=== PATIENT | female | born 1990 | race African-American/Black ===

== ENCOUNTER 2018-03-22 22:24 | Emergency (ER) | payer SELFPAY ==
[2018-03-23 00:07] LABS: Urine Blood NEGATIVE (NEG); Urine Glucose NEGATIVE (NEG); Urine Protein TRACE (NEG); Urine Specific Gravity >1.030 (1.005-1.030)
[2018-03-23 00:17] LABS: Urine Bacteria <20 /HPF (<20); Urine Culture Reflex Order NOT NEEDED; Urine RBC <5 /HPF (NONE SEEN)
--- NOTE | 2018-03-23 01:23 | ER ---
Nurse's Notes [facility] Name: Lamar Judge Age: 28 yrs Sex: Female : 1990 Arrival Date: 03/22/2018 Time: 22:26 Bed 20 Private MD: Diagnosis: Dysuria; related conditions, unspecified, first trimester Presentation: 03/22 22:46 Presenting complaint: Patient states: she is having frequency, urgency and burning with bb urination, also thinks she may have a yeast infection has been using Monistat for the itching but it is not getting better also her menstrual cycle is 2 days late and she is usually on time. Transition of care: patient was not received from another setting of care. Onset of symptoms was March 15, 2018. Risk Assessment: Do you want to hurt yourself or someone else? Patient reports no desire to harm self or others. Initial Sepsis Screen: Does the patient meet any 2 criteria? No. Patient's initial sepsis screen is negative. Does the patient have a suspected source of infection? No. Patient's initial sepsis screen is negative. Care prior to arrival: None. 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 - Social history:: Smoking status: Patient/guardian denies using tobacco, Patient uses alcohol, occasionally. Patient/guardian denies using street drugs. - Ebola Screening: : No symptoms or risks identified at this time. Screenin:53 Abuse screen: Denies threats or abuse. Nutritional screening: No deficits noted. ea Tuberculosis screening: No symptoms or risk factors identified. Fall Risk None identified. Assessment: 23:10 General: Appears in no apparent distress. Pain: Complains of pain in suprapubic area. ea Neuro: Level of Consciousness is awake, alert, obeys commands, Oriented to person, place, time, situation. Cardiovascular: Patient's skin is warm and dry. Respiratory: Airway is patent Respiratory effort is even, unlabored, Respiratory pattern is regular, symmetrical. GI: Abdomen is non-distended, Bowel sounds present X 4 quads. Abd is soft and non tender X 4 quads. : Reports burning with urination, discharge, from vagina that is white, urgency. Derm: Skin is pink, warm \T\ dry. 03/23 01:31 Reassessment: Patient and/or family updated on plan of care and expected duration. Pain ea level reassessed. Patient is alert, oriented x 3, equal unlabored respirations, skin warm/dry/pink. Discharge instruction given to patient, verbalized the understanding of instruction. Patient states feeling better. Vital Signs: 03/22 22:48 BP 148 / 78; Pulse 90; Resp 16 S; Temp 98.9(O); Pulse Ox 100% on R/A; Weight 81.65 kg bb (R); Height 5 ft. 6 in. (167.64 cm) (R); Pain 8/10; 03/23 00:00 BP 140 / 78; Pulse 88; Resp 18; Pulse Ox 98% ; ea 01:50 BP 138 / 62; Pulse 80; Resp 18; Pulse Ox 98% on R/A; rr5 03/22 22:48 Body Mass Index 29.05 (81.65 kg, 167.64 cm) bb ED Course: 03/22 22:26 Patient arrived in ED. am2 22:48 Triage completed. bb 22:48 Arm band placed on Patient placed in an exam room, on a stretcher, on pulse oximetry. bb 23:01 Fabiola Soler RN is Primary Nurse. ea 23:05 Az Gatica MD is Attending Physician. tw4 23:10 Patient has correct armband on for positive identification. Bed in low position. Call ea light in reach. Side rails up X 1. 03/23 01:31 No provider procedures requiring assistance completed. Patient did not have IV access ea during this emergency room visit. Administered Medications: No medications were administered Outcome: : Discharge ordered by . tw4 01:32 Discharged to home ambulatory. ea 01:32 Condition: improved 01:32 Discharge instructions given to patient, Instructed on discharge instructions, follow up and referral plans. Demonstrated understanding of instructions, follow-up care. 02:02 Patient left the ED. ea Signatures: Shonna Pitt RN RN Letty Mcdermott am2 Fabiola Soler, RN RN ea Az Gatica MD MD tw4 Fritz Palma RN RN rr5
--- NOTE | 2018-03-23 01:24 | EDPHYS ---
Physician Documentation [facility] Name: Lamar Judge Age: 28 yrs Sex: Female : 1990 Arrival Date: 03/22/2018 Time: 22:26 Bed 20 Private MD: ED Physician Az Gatica HPI: 03/23 05:46 This 28 yrs old Black Female presents to ER via Ambulatory with complaints of Pain With tw4 Urination, Vaginal Pain. 05:46 The patient presents with urinary symptoms, dysuria, frequency. Onset: The tw4 symptoms/episode began/occurred today. Modifying factors: The symptoms are alleviated by nothing, the symptoms are aggravated by nothing. Associated signs and symptoms: The patient has no apparent associated signs or symptoms. Severity of symptoms: At their worst the symptoms were moderate, in the emergency department the symptoms are unchanged. The patient has not experienced similar symptoms in the past. 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 - Social history:: Smoking status: Patient/guardian denies using tobacco, Patient uses alcohol, occasionally. Patient/guardian denies using street drugs. - Ebola Screening: : No symptoms or risks identified at this time. ROS: 03/23 05:46 Positive for urinary symptoms, urinary frequency, hematuria. tw4 Constitutional: Negative for fever, chills, and weight loss, Eyes: Negative for injury, pain, redness, and discharge, Cardiovascular: Negative for chest pain, palpitations, and edema, Respiratory: Negative for shortness of breath, cough, wheezing, and pleuritic chest pain, Abdomen/GI: Negative for abdominal pain, nausea, vomiting, diarrhea, and constipation, Back: Negative for injury and pain, MS/Extremity: Negative for injury and deformity, Skin: Negative for injury, rash, and discoloration. Exam: 05:46 Constitutional: This is a well developed, well nourished patient who is awake, alert, tw4 and in no acute distress. Head/Face: Normocephalic, atraumatic. Chest/axilla: Normal chest wall appearance and motion. Nontender with no deformity. No lesions are appreciated. Cardiovascular: Regular rate and rhythm with a normal S1 and S2. No gallops, murmurs, or rubs. Normal PMI, no JVD. No pulse deficits. Respiratory: Lungs have equal breath sounds bilaterally, clear to auscultation and percussion. No rales, rhonchi or wheezes noted. No increased work of breathing, no retractions or nasal flaring. Abdomen/GI: Soft, non-tender, with normal bowel sounds. No distension or tympany. No guarding or rebound. No evidence of tenderness throughout. Back: No spinal tenderness. No costovertebral tenderness. Full range of motion. MS/ Extremity: Pulses equal, no cyanosis. Neurovascular intact. Full, normal range of motion. Neuro: Awake and alert, GCS 15, oriented to person, place, time, and situation. Cranial nerves II-XII grossly intact. Motor strength 5/5 in all extremities. Sensory grossly intact. Cerebellar exam normal. Normal gait. Vital Signs: 03/22 22:48 BP 148 / 78; Pulse 90; Resp 16 S; Temp 98.9(O); Pulse Ox 100% on R/A; Weight 81.65 kg bb (R); Height 5 ft. 6 in. (167.64 cm) (R); Pain 8/10; 03/23 00:00 BP 140 / 78; Pulse 88; Resp 18; Pulse Ox 98% ; ea 01:50 BP 138 / 62; Pulse 80; Resp 18; Pulse Ox 98% on R/A; rr5 03/22 22:48 Body Mass Index 29.05 (81.65 kg, 167.64 cm) bb MDM: 03/22 23:05 Patient medically screened. tw4 03/23 05:46 Data reviewed: vital signs, nurses notes. Counseling: I had a detailed discussion with tw the patient and/or guardian regarding: the historical points, exam findings, and any diagnostic results supporting the discharge/admit diagnosis. Special discussion: I discussed with the patient/guardian in detail that at this point there is no indication for admission to the hospital. It is understood, however, that if the symptoms persist or worsen the patient needs to return immediately for re-evaluation. 03/22 23:08 Order name: Urine Microscopic Only; Complete Time: 00:26 tw4 03/22 23:11 Order name: Urine Dipstick--Ancillary (enter results); Complete Time: 00:26 mw2 03/22 23:08 Order name: Urine Test (obtain specimen); Complete Time: 23:12 tw4 03/22 23:11 Order name: Urine --Ancillary (enter results); Complete Time: 00:26 mw2 Administered Medications: No medications were administered Disposition: 03/23/18 01:22 Discharged to Home. Impression: Dysuria, related conditions, unspecified, first trimester. - Condition is Stable. - Discharge Instructions: Dysuria, First Trimester of . - Medication Reconciliation Form, Thank You Letter, Antibiotic Education, Prescription Opioid Use, Work release form form. - Follow up: Private Physician; When: Upon discharge from the Emergency Department; Reason: Recheck today's complaints, Continuance of care, Re-evaluation by your physician. - Problem is new. - Symptoms have improved. Signatures: Dispatcher [employer] Shonna Thorpe RN RN Fabiola Ritchie RN RN ea Wadley, Terrence, MD MD tw4 Corrections: (The following items were deleted from the chart) 02:02 01:22 03/23/2018 01:22 Discharged to Home. Impression: Dysuria; related ea conditions, unspecified, first trimester. Condition is Stable. Forms are Medication Reconciliation Form, Thank You Letter, Antibiotic Education, Prescription Opioid Use. Follow up: Private Physician; When: Upon discharge from the Emergency Department; Reason: Recheck today's complaints, Continuance of care, Re-evaluation by your physician. Problem is new. Symptoms have improved. tw4
[2018-03-23 02:34] VITALS: TEMP 98.9
[2018-03-23 02:35] VITALS: BP 140/78; O2SAT 98
== END 2018-03-23 02:02 | disposition home or self-care (01) ==
LOC: ER 22:24
DX: O26.891 Other specified pregnancy related conditions, first trimester (principal); R30.0 Dysuria; Z3A.00 Weeks of gestation of pregnancy not specified
CPT/HCPCS: 81003; 81015; 81025; 99283

== ENCOUNTER 2018-12-23 14:57 | Emergency (ER) | payer OTHER ==
[2018-12-23 16:37] LABS: Urine Blood NEGATIVE (NEG); Urine Glucose NEGATIVE (NEG); Urine Protein TRACE (NEG)
--- NOTE | 2018-12-23 16:48 | ER ---
Nurse's Notes [facility] Name: Lamar Judge Age: 28 yrs Sex: Female : 1990 Arrival Date: 12/23/2018 Time: 14:59 Bed 10 Private MD: Diagnosis: Acute upper respiratory infection, unspecified; state Presentation: 12/23 15:17 Presenting complaint: Patient states: "I've nauseated, having diarrhea, congestion, aa5 sore throat for about 2 days". Transition of care: patient was not received from another setting of care. Onset of symptoms was December 2018. Risk Assessment: Do you want to hurt yourself or someone else? Patient reports no desire to harm self or others. Initial Sepsis Screen: Does the patient meet any 2 criteria? No. Patient's initial sepsis screen is negative. Does the patient have a suspected source of infection? No. Patient's initial sepsis screen is negative. Care prior to arrival: None. 15:17 Acuity: VANNESA 4 aa5 15:17 Method Of Arrival: Ambulatory aa5 Triage Assessment: 15:20 General: Appears comfortable, Behavior is calm, cooperative. Pain: Complains of pain in aa5 throat. EENT: Throat is pink. Neuro: Level of Consciousness is awake, alert, obeys commands, Oriented to person, place, time, situation. Cardiovascular: Patient's skin is warm and dry. Respiratory: Airway is patent Respiratory effort is even, unlabored, Respiratory pattern is regular, symmetrical, Breath sounds are clear bilaterally. GI: Abdomen is round non-distended, Bowel sounds present X 4 quads. Abd is soft and non tender X 4 quads. Reports diarrhea. : No signs and/or symptoms were reported regarding the genitourinary system. Derm: Skin is dry, Skin is normal, Skin temperature is warm. Musculoskeletal: Range of motion: intact in all extremities. 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 - Social history:: Smoking status: Patient/guardian denies using tobacco. - Ebola Screening: : No symptoms or risks identified at this time. Screenin:21 Abuse screen: Denies threats or abuse. Nutritional screening: No deficits noted. tw2 Tuberculosis screening: No symptoms or risk factors identified. Fall Risk None identified. Assessment: 15:20 Reassessment: See triage assessment . aa5 16:32 Reassessment: Patient appears in no apparent distress at this time. Patient and/or iw family updated on plan of care and expected duration. Pain level reassessed. Patient is alert, oriented x 3, equal unlabored respirations, skin warm/dry/pink. Vital Signs: 15:19 BP 123 / 83; Pulse 100; Resp 18 S; Temp 98.3(TE); Pulse Ox 100% ; aa5 ED Course: 14:59 Patient arrived in ED. mr 15:17 Arm band placed on. aa5 15:19 Triage completed. aa5 15:20 [facility]uddleston [facility]C [facility]. kb 15:20 Gabriel Berry MD is Attending Physician. kb 15:21 Bed in low position. Call light in reach. tw2 15:24 Monserrat Barnes, RN is Primary Nurse. aa5 16:00 Strep Sent, Flu Sent. kj1 16:00 Urine collected: clean catch specimen, clear, Flu and/or RSV swab sent to lab. Strep kj1 swab sent to lab. 17:00 No provider procedures requiring assistance completed. Patient did not have IV access aa5 during this emergency room visit. Administered Medications: No medications were administered Outcome: 16:48 Discharge ordered by MD. kb 17:00 Discharged to home ambulatory. aa5 17:00 Condition: stable 17:00 Discharge instructions given to patient, Instructed on discharge instructions, follow up and referral plans. Demonstrated understanding of instructions, follow-up care. 17:08 Patient left the ED. Signatures: Maya Huddleston FNP-C FNP-Mary White Irene, RN RN Monserrat Barnes, RN STEVIE aa5 Makenzie Sorenson RN RN tw2 Day Huddleston kj Corrections: (The following items were deleted from the chart) 16:19 16:18 Group A Streptococcus Rapid Sc+BA.LAB.BRZ drawn and sent. kj kj 16:19 16:18 Influenza Screen (A \\T\\ B)+BA.LAB.BRZ drawn and sent. kj1 kj1
--- NOTE | 2018-12-23 16:49 | EDPHYS ---
Physician Documentation [facility] Name: Lamar Judge Age: 28 yrs Sex: Female : 1990 Arrival Date: 12/23/2018 Time: 14:59 Bed 10 Private MD: ED Physician Gabriel Berry HPI: 12/23 16:09 This 28 yrs old Black Female presents to ER via Ambulatory with complaints of Sinus kb Congestion, Sore Throat. 16:09 The patient or guardian reports cough, that is intermittent, described as mild, with no kb sputum, flu symptoms, arthralgias, low-grade fever, myalgias. Onset: The symptoms/episode began/occurred 2 day(s) ago. Severity of symptoms: At their worst the symptoms were moderate, in the emergency department the symptoms are unchanged. Modifying factors: The symptoms are alleviated by nothing, the symptoms are aggravated by nothing. Associated signs and symptoms: Pertinent positives: fever, nausea, rhinorrhea, sore throat, Pertinent negatives: chest pain, diarrhea, ear ache, vomiting. The patient has not experienced similar symptoms in the past. The patient has not recently seen a physician. Pt reports cough, congestion, chills, sore throat and body aches for 2 days. Also requests test because she hasn't started her cycle. 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 - Social history:: Smoking status: Patient/guardian denies using tobacco. - Ebola Screening: : No symptoms or risks identified at this time. ROS: 16:09 Neck: Negative for injury, pain, and swelling, Cardiovascular: Negative for chest pain, kb palpitations, and edema, Abdomen/GI: Negative for abdominal pain, nausea, vomiting, diarrhea, and constipation, Back: Negative for injury and pain, : Negative for injury, bleeding, discharge, and swelling, MS/Extremity: Negative for injury and deformity, Skin: Negative for injury, rash, and discoloration, Neuro: Negative for headache, weakness, numbness, tingling, and seizure. 16:09 Constitutional: Positive for body aches, chills, fatigue, fever, malaise. 16:09 ENT: Positive for rhinorrhea, sinus congestion, sore throat. 16:09 Respiratory: Positive for cough, Negative for dyspnea on exertion, hemoptysis, orthopnea, pleurisy, shortness of breath, sputum production, wheezing. Exam: 16:11 Constitutional: This is a well developed, well nourished patient who is awake, alert, kb and in no acute distress. Head/Face: Normocephalic, atraumatic. Neck: Trachea midline, no thyromegaly or masses palpated, and no cervical lymphadenopathy. Supple, full range of motion without nuchal rigidity, or vertebral point tenderness. No Meningismus. Chest/axilla: Normal chest wall appearance and motion. Nontender with no deformity. No lesions are appreciated. Cardiovascular: Regular rate and rhythm with a normal S1 and S2. No gallops, murmurs, or rubs. Normal PMI, no JVD. No pulse deficits. Respiratory: Lungs have equal breath sounds bilaterally, clear to auscultation and percussion. No rales, rhonchi or wheezes noted. No increased work of breathing, no retractions or nasal flaring. Abdomen/GI: Soft, non-tender, with normal bowel sounds. No distension or tympany. No guarding or rebound. No evidence of tenderness throughout. Skin: Warm, dry with normal turgor. Normal color with no rashes, no lesions, and no evidence of cellulitis. MS/ Extremity: Pulses equal, no cyanosis. Neurovascular intact. Full, normal range of motion. Neuro: Awake and alert, GCS 15, oriented to person, place, time, and situation. Cranial nerves II-XII grossly intact. Motor strength 5/5 in all extremities. Sensory grossly intact. Cerebellar exam normal. Normal gait. 16:11 ENT: External ear(s): are unremarkable, Ear canal(s): are normal, TM's: are normal, Nose: is normal, Mouth: is normal, Posterior pharynx: Airway: normal, no evidence of obstruction, Tonsils: bilaterally enlarged, with erythema, Uvula: normal, midline, swelling, that is moderate, erythema, that is moderate. Vital Signs: 15:19 BP 123 / 83; Pulse 100; Resp 18 S; Temp 98.3(TE); Pulse Ox 100% ; aa5 MDM: 15:20 Patient medically screened. kb 16:11 Data reviewed: vital signs, nurses notes. Data interpreted: Pulse oximetry: on room air kb is 100 %. Interpretation: normal. 16:47 Counseling: I had a detailed discussion with the patient and/or guardian regarding: the kb historical points, exam findings, and any diagnostic results supporting the discharge/admit diagnosis, lab results, the need for outpatient follow up, a family practitioner, an OB/Gyne specialist, to return to the emergency department if symptoms worsen or persist or if there are any questions or concerns that arise at home. 12/23 15:48 Order name: Flu; Complete Time: 16:47 kb 12/23 15:48 Order name: Strep; Complete Time: 16:40 kb 12/23 16:20 Order name: Urine Dipstick--Ancillary (enter results); Complete Time: 16:40 eb 12/23 16:20 Order name: Urine --Ancillary (enter results); Complete Time: 16:40 eb 12/23 16:38 Order name: Throat Culture EDMS Administered Medications: No medications were administered Disposition: 12/24 07:30 Co-signature as Attending Physician, Gabriel Berry MD. Disposition: 12/23/18 16:48 Discharged to Home. Impression: Acute upper respiratory infection, unspecified, state. - Condition is Stable. - Discharge Instructions: Upper Respiratory Infection, Adult, [id number], Viral Respiratory Infection, [id number]. - Medication Reconciliation Form, Thank You Letter, Antibiotic Education, Prescription Opioid Use form. - Follow up: Emergency Department; When: As needed; Reason: Worsening of condition. Follow up: Private Physician; When: 2 - 3 days; Reason: Recheck today's complaints, Continuance of care, Re-evaluation by your physician. Signatures: Dispatcher [employer] EDMS Maya Huddleston FNP-C FNP-Ckb Williams, Irene, RN RN iw Calderon, Audri, RN RN aa5 Starr, Gregory, MD MD gs Corrections: (The following items were deleted from the chart) 12/23 17:08 16:48 12/23/2018 16:48 Discharged to Home. Impression: Acute upper respiratory iw infection, unspecified; state. Condition is Stable. Forms are Medication Reconciliation Form, Thank You Letter, Antibiotic Education, Prescription Opioid Use. Follow up: Emergency Department; When: As needed; Reason: Worsening of condition. Follow up: Private Physician; When: 2 - 3 days; Reason: Recheck today's complaints, Continuance of care, Re-evaluation by your physician. kb
[2018-12-23 17:16] VITALS: BP 123/83; TEMP 98.3; O2SAT 100
== END 2018-12-23 17:08 | disposition home or self-care (01) ==
LOC: ER 14:57
DX: J06.9 Acute upper respiratory infection, unspecified (principal); Z33.1 Pregnant state, incidental
CPT/HCPCS: 81003; 81025; 87070; 87081; 87804; 99283